=== PATIENT | male | born 1955 | race Caucasian/White ===

== ENCOUNTER 2016-10-29 00:30 | Emergency (ER) | payer BC ==
[2016-10-29] MEDS ORDERED: Sodium Chloride 0.9% 5 ML Syringe FLUSH PRN (01:00)
[2016-10-29] MEDS ORDERED: Sodium Chloride 0.9% 1,000 ML IV STA (01:00)
--- NOTE | 2016-10-29 01:17 | EDM.PDOC ---
ED HPI GI/ABDOMINAL - General Chief Complaint: Abdominal Pain Stated Complaint: abd pain Time Seen by Provider: 10/29/16 00:58 Source of Information: Reports: Patient History Limitations: Reports: No limitations - History of Present Illness INITIAL COMMENTS - FREE TEXT/NARRATIVE: PT STATES AT APPROX 2000 TONIGHT HE DEVELOPED ABD PAIN AND NAUSEA WITHOUT VOMITING. HAD LAP JOSH 5 WEEKS AGO. DENIES FEVER, BOWEL CHANGES, BLOODY STOOL. Symptom Onset Date: 10/29/16 Timing/Duration: Reports: Hour(s): Location: generalized Quality: Reports: ache Severity: mild Associated Symptoms: Reports: denies other symptoms, nausea/vomiting. Denies: chest pain, testicular pain, constipation, diarrhea, bloody stools, fever/chills , loss of appetite - Related Data Allergies/ADRs: Allergies Allergy/AdvReac Type Severity Reaction Status Date / Time bacitracin Allergy Rash Verified 10/29/16 00:47 [From Neosporin ([id number])] neomycin Allergy Rash Verified 10/29/16 00:47 [From Neosporin ([id number])] polymyxin B Allergy Rash Verified 10/29/16 00:47 [From Neosporin ([id number])] bandaids Allergy Rash Uncoded 10/29/16 00:47 Home Meds: Home Meds Ascorbic Acid [Vitamin C] 1,000 mg PO DAILY 11/28/13 [History] Gemfibrozil [Gemfibrozil] 600 mg PO BID 11/28/13 [History] Multivitamin [Multi Vitamin Daily] 1 each PO DAILY 11/28/13 [History] SUMAtriptan Succinate [Imitrex] 100 mg PO QID PRN 11/28/13 [History] amLODIPine Besylate/Benazepril [Amlodipine-Benazepril 5-10 MG] 5 - 10 mg PO DAILY 10/29/16 [History] Social & Family History - Alcohol Use Days Per Week of Alcohol Use: 0 - Recreational Drug Use Recreational Drug Use: No ED ROS GENERAL - Review of Systems Review Of Systems: ROS reveals no pertinent complaints other than HPI. Constitutional: Reports: no symptoms HEENT: Reports: No symptoms Respiratory: Reports: No Symptoms Cardiovascular: Reports: No symptoms Endocrine: Reports: no symptoms GI/Abdominal: Reports: Abdominal pain, Nausea : Reports: no symptoms Musculoskeletal: Reports: no symptoms Skin: Reports: no symptoms Neurological: Reports: No Symptoms Psychiatric: Reports: No symptoms Hematologic/Lymphatic: Reports: no symptoms Immunologic: Reports: no symptoms ED EXAM, GI/ABD - Physical Exam Exam: See Below Exam Limited By: No limitations General Appearance: alert, WD/WN, no apparent distress Nose: normal inspection, normal mucosa, no blood Throat/Mouth: Normal inspection, Normal oropharynx, No airway compromise Head: atraumatic, normocephalic Neck: normal inspection Respiratory/Chest: no respiratory distress, lungs clear, normal breath sounds, no accessory muscle use, chest non-tender Cardiovascular: regular rate, rhythm, no murmur GI/Abdominal: normal bowel sounds, soft, non tender, no organomegaly, no distention, no abnormal bruit, no mass Back Exam: normal inspection. No: CVA tenderness (L), CVA tenderness (R) Extremities: normal inspection Neurological: alert, oriented, normal cognition Psychiatric: normal affect, normal mood Skin Exam: Warm, Dry, Intact, Normal color, No rash Lymphatic: no adenopathy Course - Orders/Labs/Meds Orders: Active Orders 24 hr Category Date Time Status Peripheral IV Care [RC] . DIRECTED Care 10/29/16 01:01 Ordered CBC WITH AUTO DIFF [HEME] Stat Lab 10/29/16 01:00 Ordered COMPREHENSIVE METABOLIC PN,CMP [CHEM] Stat Lab 10/29/16 01:00 Ordered LIPASE [CHEM] Stat Lab 10/29/16 01:00 Ordered UA W/MICROSCOPIC [URIN] Stat Lab 10/29/16 01:00 Uncollected Sodium Chloride 0.9% [Normal Saline] 1,000 ml Med 10/29/16 01:00 Ordered IV .BOLUS Sodium Chloride 0.9% [Syrex Flush] Med 10/29/16 01:00 Ordered 5 ml FLUSH Q8HR PRN Peripheral IV Insertion Adult [OM.PC] Stat Oth 10/29/16 01:00 Ordered - Re-Assessments/Exams Free Text/Narrative Re-Assessment/Exam: 10/29/16 02:18 PT AFEBRILE, NONTOXIC APPEARING, DISCOMFORT RELIEVED. WILL F/U WITH PCP IN 1- 2 DAYS Departure - Departure Time of Disposition: 02:23 Disposition: Home, Self-Care 01 Condition: good Clinical Impression: Abdominal pain Qualifiers: Abdominal location: generalized Qualified Code(s): R10.84 - Generalized abdominal pain Instructions: Abdominal Pain, Adult, [id number] Forms: ED Department Discharge Additional Instructions: FOLLOW UP WITH YOUR PCP IN 1- 2 DAYS. RETURN TO ER SOONER IF SYMPTOMS CONTINUE OR WORSEN - My Orders Last 24 Hours: My Active Orders 10/29/16 01:00 CBC WITH AUTO DIFF [HEME] Stat COMPREHENSIVE METABOLIC PN,CMP [CHEM] Stat LIPASE [CHEM] Stat UA W/MICROSCOPIC [URIN] Stat Sodium Chloride 0.9% [Normal Saline] 1,000 ml IV .BOLUS Sodium Chloride 0.9% [Syrex Flush] 5 ml FLUSH Q8HR PRN Peripheral IV Insertion Adult [OM.PC] Stat 10/29/16 01:01 Peripheral IV Care [RC] . DIRECTED - Assessment/Plan Last 24 Hours: My Active Orders 10/29/16 01:00 CBC WITH AUTO DIFF [HEME] Stat COMPREHENSIVE METABOLIC PN,CMP [CHEM] Stat LIPASE [CHEM] Stat UA W/MICROSCOPIC [URIN] Stat Sodium Chloride 0.9% [Normal Saline] 1,000 ml IV .BOLUS Sodium Chloride 0.9% [Syrex Flush] 5 ml FLUSH Q8HR PRN Peripheral IV Insertion Adult [OM.PC] Stat 10/29/16 01:01 Peripheral IV Care [RC] . DIRECTED
[2016-10-29 01:41] LABS: CHLORIDE,CL 102 mmol/L (98-115); SODIUM,NA 141 mmol/L (136-145)
[2016-10-29] MEDS ORDERED: Ketorolac 30 MG/ML SDV IVPUSH ONE (02:09)
[2016-10-29] MEDS ORDERED: Famotidine 20 MG/2 ML SDV IVPUSH ONE (02:09)
[2016-10-29 08:03] VITALS: BP 126/71
== END 2016-10-29 02:40 | disposition home or self-care (01) ==
LOC: KA.ED 00:30
DX: R10.84 Generalized abdominal pain (principal); Z88.1 Allergy status to other antibiotic agents; Z88.8 Allergy status to other drugs, medicaments and biological substances; Z79.899 Other long term (current) drug therapy
CPT/HCPCS: 36415; 80053; 81001; 83690; 85025; 96361; 96374; 96375; 99284; J1885; J7030; S0028